=== PATIENT | female | born 1995 | race Caucasian/White ===

== ENCOUNTER 2025-04-19 15:40 | Emergency (ER) | payer OTHER ==
[~2025-04-19] VITALS: Ht 170.2 cm; Wt 56.7 kg
[2025-04-19 15:50] VITALS: TEMP 98.4
[2025-04-19 16:48] LABS: PLATELET COUNT (AUTO) 264 K/uL (150-450); RED BLOOD CELL COUNT(AUTO) 4.89 MIL/uL (4.0-5.2); RED CELL DISTRIBUTION WIDTH 13.1 % (11.5-15.0); WHITE BLOOD COUNT (AUTO) 6.3 K/uL (4.3-11.0)
[2025-04-19 17:01] LABS: CALCIUM, SERUM 9.4 mg/dL (8.5-10.1); CREATININE 1.0 mg/dL (0.6-1.3); SODIUM SERUM 140.0 mmol/L (136-145); UREA NITROGEN, BLOOD 18.0 mg/dL (7-18)
[2025-04-19 17:04] LABS: PHOSPHORUS 3.8 mg/dL (2.5-4.9)
[2025-04-19] MEDS ORDERED: MECLIZINE HCL 25 MG TABLET ONE (17:31)
[2025-04-19] MEDS: MECLIZINE HCL 25 MG TABLET PO STA (17:34)
[2025-04-19 18:29] LABS: PREGNANCY TEST URINE QUAL NEGATIVE (NEGATIVE)
[2025-04-19] MEDS ORDERED: MECL-159 PO (19:19)
[2025-04-19 19:33] VITALS: BP 113/83; O2SAT 98
== END 2025-04-19 19:30 | disposition home or self-care (01) ==
LOC: ER 15:52
DX: R42 Dizziness and giddiness (principal); R07.9 Chest pain, unspecified; R06.02 Shortness of breath
CPT/HCPCS: 99285; 71045; 93005; 85025; 80048; 83735; 84100; 84703; 36415; 84439; 84443; J8597